=== PATIENT | male | born 1965 | race Caucasian/White ===

== ENCOUNTER 2017-07-26 16:26 | Emergency (ER) | payer MEDICARE, MEDICAID ==
[2017-07-26] MEDS ORDERED: 0.9 % SODIUM CHLORIDE 1,000 ML BAG IV ONE (16:40)
--- NOTE | 2017-07-26 16:47 | Emergency Department Record ---
History of Present Illness - General Chief Complaint: Altered Mental Status Stated Complaint: OVERDOSE Time Seen by Provider: 07/26/17 16:29 Source: Family, EMS Mode of Arrival: EMS Limitations: Altered mental status - History of Present Illness Initial Comments: The patient was found passed out in a trailer in a barn where he sleeps. His stated she had not talked to him since last night and he did not show up this AM where he was supposed to be. Due to that and the feeling she had that something was wrong she went looking for him and found him in a coma in the trailer. The denies any IV drug use but states he does use prescription pain medicines. There is no hx of trauma or injury but the patient is not able to provide any hx. The patient was found by EMS unresponsive and did wake up with one mg of Narcan. MD Complaint: Altered mental status -: Unknown Severity: Moderate Consistency: Constant Context: Unknown - Related Data Home Medications Medication Instructions Recorded Confirmed Last Taken Oxycodone HCl 5 mg PO Q6H PRN 07/26/17 07/26/17 Unknown Quetiapine Fumarate [Seroquel] 100 mg PO BID 07/26/17 07/26/17 Unknown Sertraline HCl [Zoloft] 100 mg PO DAILY 07/26/17 07/26/17 Unknown Tamsulosin HCl [Flomax] 0.4 mg PO DAILY 07/26/17 07/26/17 Unknown Review of Systems ROS unobtainable: Due to mental status Physical Exam - General General Appearance: Alert (the patient is oriented to name and age.), Mild distress - Head Head exam: Atraumatic, Normocephalic - Eye Eye exam: Normal appearance, PERRL, EOMI (the pupils are small but reactive.) - ENT ENT exam: Mucous membranes dry. negative: Mucous membranes moist Throat exam: Normal inspection. negative: Tonsillar erythema, Tonsillar exudate - Neck Neck exam: Normal inspection, Full ROM. negative: Tenderness - Respiratory Respiratory exam: Normal lung sounds bilaterally. negative: Respiratory distress - Cardiovascular Cardiovascular Exam: Normal rhythm, Tachycardia - GI/Abdominal GI/Abdominal exam: Soft, Normal bowel sounds. negative: Tenderness - Extremities Extremities exam: Normal inspection, Full ROM, Normal capillary refill. negative: Tenderness Course - Reevaluation(s) Reevaluation #1: The patient is doing better at this time. He is more alert and is following commands. He does answer some questions but is not able to remember what happened in the last day or so. He did seem to become more alert after the Narcan 0.4 mg was given. 07/26/17 17:37 Reevaluation #2: The patient is resting comfortably with no new complaints. His rectal temp has improved to 100.1 and his mental status is slowly improving. The patient is hemodynamically stable. 07/26/17 17:43 Reevaluation #3: The patient continues to improve and is resting comfortably. I did discuss the plan with the patient's and did recommend transfer to [facility]. I also did discuss the case with Dr. Leiva who is buttonhole maker for the [employer] at [facility] and he does accept the patient in transfer. 07/26/17 17:58 Reevaluation #4: The patient continues to slowly improve. He does easily wake up to voice and is speaking more clearly. He denies any pain or discomfort. The patient's vitals are improving and his HR continues to improve and is now 110. The patient's Biox on 2 L of O2 is 100%. I did discuss the plan again with family and the need for transfer to [facility]. The patient's did discuss a note he sent her that he told her to not revive him but she was not overly forthcoming with other information. The patient continues to improve and his temp is now normal. I strongly do not feel the patient's fever is from sepsis but from the fact he overdosed in a trailer in a hot barn where it was about 120 degrees when EMS picked him up. 07/26/17 18:13 07/26/17 18:56 Medical Decision Making - Data Complexity MDM Data: Labs Ordered and/or Reviewed, X-Ray Ordered and/or Reviewed, EKG Ordered and/or Reviewed - Lab Data Result diagrams: 07/26/17 16:50 07/26/17 16:50 - EKG Data -: EKG Interpreted by Me (Sinus Tach at 141, O/W neg.) - Radiology Data Radiology results: Report reviewed (Head and Cspine CT: Neg.) Disposition Disposition: Transfer Clinical Impression: Altered mental status Qualifiers: Altered mental status type: unspecified Qualified Code(s): R41.82 - Altered mental status, unspecified Disposition: Acute Care Hospital Transfer Transfer To: [facility] Reason For Transfer: AMS Accepting Physician: Abbie Time Discussed w/Accepting Physician: 18:00 Condition: (2) Stable Forms: Patient Portal Access Time of Disposition: 18:00 Quality - Quality Measures Quality Measures: N/A - Blood Pressure Screening View Details: Yes Does Patient Have Any of the Following: No Blood Pressure Classification: Pre-Hypertensive BP Reading Systolic Measurement: 131 Diastolic Measurement: 79 Screening for High Blood Pressure: < Pre-Hypertensive BP, F/U Documented > [ [id number]] Pre-Hypertensive Follow-up Interventions: Referral to alternative/primary care provider.
[2017-07-26] MEDS ORDERED: ACETAMINOPHEN 650 MG SUPP RC ONE (16:51)
[2017-07-26 17:16] LABS: BASO % 0.2 % (0-6); GRAN % 78.8 % (47-80); HEMOGLOBIN 17.1 gm/dl (14.0-18.0); LYMPH % 11.8 % (16-45); MEAN CELL VOLUME 94.4 fl (81-97); MEAN CORPUSCULAR HEMOGLOBIN 32.9 pg (27-33); MEAN CORPUSCULAR HGB CONC 34.9 g/dl (32-36); MEAN PLATELET VOLUME 11.9 fl (7.4-10.4); MONO % 9.2 % (0-9); RED BLOOD COUNT 5.19 M/uL (4.40-5.70); RED CELL DISTRIBUTION WIDTH 13.7 % (11.5-14.5)
[2017-07-26 17:20] LABS: URINE APPEARANCE CLEAR; URINE BILIRUBIN SMALL (NEGATIVE); URINE BLOOD SMALL (NEGATIVE); URINE COLOR ORANGE; URINE GLUCOSE (UA) NEGATIVE (NEGATIVE); URINE KETONE NEGATIVE (NEGATIVE); URINE LEUKOCYTE ESTERASE NEGATIVE (NEGATIVE); URINE NITRITE NEGATIVE (NEGATIVE)
[2017-07-26] MEDS ORDERED: NALOXONE 0.4 MG/1 ML VIAL IVP ONE (17:25)
[2017-07-26 17:33] LABS: BLOOD UREA NITROGEN 15 mg/dL (6-20); CREATININE 1.1 mg/dL (0.7-1.2); EST GLOMERULAR FILTRATION RATE > 60 mL/min; PLATELET COUNT 43 K/uL (130-400)
[2017-07-26 17:34] LABS: COCAINE SCREEN URINE DETECTED; OXYCODONE SCREEN URINE DETECTED; THC SCREEN URINE DETECTED; TOTAL PROTEIN 6.8 g/dL (6.6-8.7); TRICYCLIC ANTIDEPRESSANT SCRN DETECTED
[2017-07-26 17:35] LABS: AMPHETAMINE SCREEN URINE NOT DETECTED; BARBITURATE SCREEN URINE NOT DETECTED; BENZODIAZEPINE SCREEN URINE NOT DETECTED; METHADONE SCREEN URINE NOT DETECTED; METHAMPHETAMINE SCREEN NOT DETECTED; OPIATE SCREEN URINE NOT DETECTED; PHENCYCLIDINE SCREEN URINE NOT DETECTED; PROPOXYPHENE SCREEN URINE NOT DETECTED
[2017-07-26 17:36] LABS: GLUCOSE,RANDOM 132 mg/dL (74-109)
[2017-07-26 17:37] LABS: URINE AMORPHOUS SEDIMENT 2+; URINE BACTERIA FEW; URINE EPITHELIAL CELLS 0 - 2 (FEW); URINE RBC 0 - 2 (NONE SEEN); URINE WBC 0 - 2 (0-2/hpf)
[2017-07-26 17:38] LABS: ALT/SGPT 58 U/L (<41); AST/SGOT 79 U/L (10.0-50.0)
[2017-07-26 17:39] LABS: ALB/GLOB RATIO 1.3 (1.1-1.8); ALBUMIN 3.8 g/dL (4.0-5.0); ALKALINE PHOSPHATASE 80 U/L (40-129)
[2017-07-26 17:41] LABS: ACETAMINOPHEN < 5.0 ug/mL (10.0-30.0); SALICYLATE < 0.3 mg/dL (2.8-20)
[2017-07-26 17:56] LABS: INR 1.2; PARTIAL THROMBOPLASTIN TIME 31.1 SECONDS (24.5-39.1); PROTHROMBIN TIME (PATIENT) 12.4 SECONDS (9.5-12.1)
[2017-07-26] MEDS ORDERED: 0.9 % SODIUM CHLORIDE 1000ML 1,000 ML IV ONE (18:01)
[2017-07-26 18:11] LABS: CREATINE PHOSPHOKINASE 3205 U/L (39-308)
--- NOTE | 2017-07-28 10:22 | RADIOLOGY REPORT ---
EXAM: PORTABLE CHEST HISTORY: DIFFICULTY IN BREATHING. TECHNIQUE: A portable upright view of the chest was performed. FINDINGS: The heart size is normal. There is subtle infiltrate in the left lung base. No pleural effusion. The osseous structures are normal. IMPRESSION: EQUIVOCAL SUBTLE INFILTRATE LEFT LUNG BASE. JOB NUMBER: [id number] [facility]
--- NOTE | 2017-07-28 10:27 | CT SCAN REPORT ---
EXAM: CT OF THE BRAIN WITHOUT CONTRAST HISTORY: OVERDOSE. TECHNIQUE: Sequential axial images were obtained from the foramen magnum to the vertex without contrast administration. FINDINGS: The brain volume is normal. No large territorial infarct, hemorrhage , mass effect, or midline shift. No extraaxial fluid collection. There is left frontal soft tissue swelling. No underlying osseous abnormality. IMPRESSION: 1. NO ACUTE INTRACRANIAL ABNORMALITY IS APPRECIATED. 2. LEFT FRONTAL SOFT TISSUE SWELLING. NO UNDERLYING OSSEOUS ABNORMALITY. JOB NUMBER: [id number] [facility]
--- NOTE | 2017-07-28 10:29 | CT SCAN REPORT ---
EXAM: CT OF THE CERVICAL SPINE WITHOUT CONTRAST HISTORY: OVERDOSE. TECHNIQUE: Sequential axial images were obtained through the cervical spine without intravenous contrast administration. Sagittal and coronal reformatted images were performed. FINDINGS: There is no evidence of fracture, subluxation or perched facet. Mild multilevel degenerative change. IMPRESSION: NO EVIDENCE OF FRACTURE, SUBLUXATION, OR PERCHED FACET. JOB NUMBER: [id number] [facility]
== END 2017-07-26 19:46 | disposition short-term general hospital (02) ==
LOC: EDBD 16:26 → ER 16:26
DX: R41.82 Altered mental status, unspecified (principal); R50.9 Fever, unspecified; Z79.899 Other long term (current) drug therapy
CPT/HCPCS: 99285 ×2; 96374; 96361; 82550; 83605; 82140; 85025; 85730; 85610; 80048; 80053; 81001; 80305; 84484; 71045; 72125; 70450; 93005; 93010; G0480 ×3; 80320; 80329; J2310; J7030